=== PATIENT | female | born 1955 | race Two or more races ===

== ENCOUNTER 2024-07-09 15:45 | Inpatient (IN) | payer MEDICARE, MEDICAID ==
[~2024-07-09] VITALS: Ht 165.1 cm; Wt 94.5 kg
[2024-07-09] MEDS: ASPIRIN 81MG TABLET PO ONE (16:28)
[2024-07-09] MEDS: SODIUM CHLORIDE 0.9% 1,000 ML IV ONE (16:28)
[2024-07-09] MEDS: DILTIAZEM HCL 5MG/ML 5ML VIAL IV ONE (16:28)
[2024-07-09] MEDS: ONDANSETRON HCL 4MG/2ML INJ IV STA (16:28)
[2024-07-09 16:42] LABS: HEMATOCRIT. 39.4 % (36.0-48.0); HEMOGLOBIN. 12.3 g/dL (12.0-16.0); MEAN CORPUSCULAR HEMOGLOBIN 29.4 pg (28.0-32.0); MEAN CORPUSCULAR HGB CONC 31.3 g/dL (31.0-37.0); MEAN CORPUSCULAR VOLUME 94.2 fL (81.0-99.0); MEAN PLATELET VOLUME 8.8 fl (7.4-10.4); PLATELET 176 x1000/uL (130-400); RED BLOOD CELL COUNT 4.18 mill/uL (4.2-5.4); RED CELL DISTRIBUTION WIDTH 14.3 % (11.6-14.6)
[2024-07-09 16:44] LABS: DIFFERENTIAL COMMENT 1
[2024-07-09 16:51] LABS: CHLORIDE 103 mEq/L (98-107); POTASSIUM 3.9 mEq/L (3.5-5.1); SODIUM 135 mEq/L (136-145)
[2024-07-09 16:52] LABS: CARBON DIOXIDE 20 mEq/L (21-32)
[2024-07-09 16:53] LABS: CALCIUM 9.2 mg/dL (8.7-10.4)
[2024-07-09 16:57] LABS: GLUCOSE 186 mg/dL (70-105); UREA NITROGEN BLOOD 9 mg/dL (9-23)
[2024-07-09 17:00] LABS: TROPONIN I HIGH SENSITIVITY 65 ng/L (3.0-34)
[2024-07-09 17:54] LABS: PLATELET ESTIMATE NORMAL
[2024-07-09] MEDS: ACETAMINOPHEN 500MG TABLET PO ONE (21:52)
[2024-07-09] MEDS: SODIUM CHLORIDE 0.9% (SEPSIS BOLUS) IV ONE (21:52)
[2024-07-09] MEDS ORDERED: MEROPENEM 1,000 MG in SODIUM CHLORIDE 0.9% 100 ML IV SCH (22:00)
[2024-07-09] MEDS ORDERED: ONDANSETRON HCL 4MG/2ML INJ IV PRN (22:00)
[2024-07-09] MEDS ORDERED: ACETAMINOPHEN 325MG TABLET PO PRN (22:00)
[2024-07-09] MEDS ORDERED: MAGNESIUM/ALUMINUM HYDROXIDE/SIMETHICONE 30ML UDC PO PRN (22:00)
[2024-07-09] MEDS ORDERED: DOCUSATE SODIUM 100MG CAPSULE PO PRN (22:00)
[2024-07-09] MEDS ORDERED: ZOLPIDEM TARTRATE 5MG TABLET PO PRN (22:00)
[2024-07-09] MEDS ORDERED: KETOROLAC 15MG/ML VIAL IV PRN (22:00)
[2024-07-09] MEDS ORDERED: NITROGLYCERIN 0.4MG TABLET SL SL PRN (22:00)
[2024-07-09 22:48] LABS: CLARITY URINE CLEAR (CLEAR); COLOR URINE YELLOW (YELLOW); GLUCOSE URINE NEGATIVE (NEGATIVE); KETONES URINE NEGATIVE (NEGATIVE); LEUKOCYTE ESTERASE URINE NEGATIVE (NEGATIVE); NITRITE URINE NEGATIVE (NEGATIVE); OCCULT BLOOD URINE NEGATIVE (NEGATIVE); PROTEIN URINE TRACE (NEGATIVE); SPECIFIC GRAVITY URINE 1.021 (1.005-1.030)
[2024-07-09] MEDS: LEVOFLOXACIN 750MG PREMIX 150 ML IV NR (22:48)
[2024-07-09 22:50] LABS: BACTERIA URINE TRACE; RBC URINE 0-2 /hpf (0-2); SQUAMOUS EPITHELIAL CELL URINE 1+ /lpf (RARE/1+)
[2024-07-09] MEDS: ENOXAPARIN 80MG/0.8ML SYR SUBCUT NR (23:47)
[2024-07-09] MEDS: MEROPENEM 1GM/50ML DUPLEX 50 ML IV SCH (23:47)
[2024-07-10] VITALS (8 sets, daily range): BP systolic 100–179; BP diastolic 51–108; PULSE 59–115; RESP 18–24; TEMP 36.0288–37.66968; O2SAT 92–99
[2024-07-10] MEDS: DILTIAZEM HCL 60MG TABLET PO SCH
[2024-07-10] MEDS: VANCOMYCIN 1.5GM/250ML IV NR (01:21)
[2024-07-10] MEDS ORDERED: CARV3.1242 PO (02:31)
[2024-07-10] MEDS ORDERED: ASPI-1497 PO (02:31)
[2024-07-10] MEDS ORDERED: ALLO100T PO (02:31)
[2024-07-10] MEDS ORDERED: APIX5TAB PO (02:31)
[2024-07-10] MEDS ORDERED: [UNRECOGNIZED DRUG - CODE] PO (02:31)
[2024-07-10] MEDS ORDERED: BUME1TAB8 PO (02:31)
[2024-07-10 03:08] LABS: IRON 23 ug/dL (50-170)
[2024-07-10 03:10] LABS: CREATINE KINASE MB FRACTION 1.1 ng/mL (0.5-3.6)
[2024-07-10 03:11] LABS: TOTAL IRON BINDING CAPACITY 322 ug/dl (250-425)
[2024-07-10 03:12] LABS: FOLIC ACID (FOLATE) SERUM 14.76 ng/mL (>5.38)
[2024-07-10 03:13] LABS: THYROID STIMULATING HORMONE 1.71 uIU/mL (0.55-4.78); VITAMIN B12 SERUM 427 pg/mL (211-911)
[2024-07-10 03:14] LABS: T4 FREE 1.02 ng/dL (0.89-1.76)
[2024-07-10 03:16] LABS: ETHANOL BLOOD < 10 mg/dL (<10)
[2024-07-10 04:56] LABS: INR 1.1; PROTHROMBIN TIME 12.4 sec (9.6-11.0)
[2024-07-10 05:57] LABS: BASOPHILS % 0.3 % (0.0-2.0); EOSINOPHILS % 0.1 % (0.0-5.0); HEMATOCRIT. 34.6 % (36.0-48.0); HEMOGLOBIN. 11.4 g/dL (12.0-16.0); LYMPHOCYTES % 10.6 % (20.0-50.0); MEAN CORPUSCULAR HEMOGLOBIN 29.9 pg (28.0-32.0); MEAN CORPUSCULAR HGB CONC 33.1 g/dL (31.0-37.0); MEAN CORPUSCULAR VOLUME 90.5 fL (81.0-99.0); MONOCYTES % 7.5 % (2.0-8.0); NEUTROPHILS % 81.5 % (40.0-76.0); PLATELET 170 x1000/uL (130-400); RED BLOOD CELL COUNT 3.82 mill/uL (4.2-5.4); RED CELL DISTRIBUTION WIDTH 13.9 % (11.6-14.6); WHITE BLOOD COUNT 9.7 x1000/uL (4.5-11.0)
[2024-07-10] MEDS ORDERED: MEROPENEM 1GM/50ML DUPLEX 50 ML IV SCH (06:00)
[2024-07-10 06:10] LABS: CHLORIDE 107 mEq/L (98-107); POTASSIUM 3.5 mEq/L (3.5-5.1); SODIUM 140 mEq/L (136-145)
[2024-07-10 06:12] LABS: CALCIUM 8.3 mg/dL (8.7-10.4); CARBON DIOXIDE 24 mEq/L (21-32)
[2024-07-10 06:17] LABS: CREATININE 0.7 mg/dL (0.6-1.0); GLUCOSE 177 mg/dL (70-105)
[2024-07-10 06:18] LABS: CREATINE KINASE MB FRACTION 1.7 ng/mL (0.5-3.6); UREA NITROGEN BLOOD 9 mg/dL (9-23)
[2024-07-10 06:19] LABS: ALANINE AMINOTRANSFERASE 16 IU/L (10-49); ALBUMIN 3.8 g/dL (3.2-4.8); ASPARTATE AMINOTRANSFERASE 26 IU/L (<34)
[2024-07-10 06:20] LABS: BILIRUBIN TOTAL 0.7 mg/dL (0.1-1.0); PHOSPHORUS 2.6 mg/dL (2.5-4.9); PROTEIN TOTAL 6.6 g/dL (6.0-8.3)
[2024-07-10] MEDS: ASPIRIN 81MG EC TABLET PO SCH (09:27)
[2024-07-10] MEDS: FAMOTIDINE 20MG TABLET PO SCH (09:27)
[2024-07-10] MEDS: ASCORBIC ACID 500 MG TABLET PO SCH (09:28)
[2024-07-10] MEDS: CLONIDINE 0.1MG TABLET PO PRN (09:29)
[2024-07-10] MEDS: ENOXAPARIN 100MG/ML SYR SUBCUT SCH (09:30)
[2024-07-10] MEDS: ZINC SULFATE 220 MG ( 50 ) CAPSULE PO SCH (09:30)
[2024-07-10] MEDS: METOPROLOL TARTRATE 50MG TABLET PO SCH (09:36)
[2024-07-10] MEDS ORDERED: VANCOMYCIN 500MG/100ML IV SCH ×2 (11:00→13:00)
[2024-07-10] MEDS: DIGOXIN 500MCG/2ML AMP IV NR (11:02)
[2024-07-10] MEDS: ACETAMINOPHEN 325MG TABLET PO PRN (11:14)
[2024-07-10 11:57] LABS: *AMPHETAMINES SCREEN URINE NEGATIVE (NEGATIVE); *BARBITURATES SCREEN URINE NEGATIVE (NEGATIVE); *BENZODIAZEPINES SCREEN URINE NEGATIVE (NEGATIVE); *COCAINE SCREEN URINE NEGATIVE (NEGATIVE); CANNABINOID URINE SCREEN NEGATIVE (NEGATIVE); ECSTASY MDMA SCREEN URINE NEGATIVE (NEGATIVE); METHADONE URINE SCREEN NEGATIVE (NEGATIVE); OPIATES URINE SCREEN PRESUMPTIVE POSITIVE (NEGATIVE); PHENCYCLIDINE URINE SCREEN NEGATIVE (NEGATIVE)
[2024-07-10] MEDS: VANCOMYCIN 750MG PREMIX 150 ML IV SCH (14:17)
[2024-07-10] MEDS: IPRATROPIUM/ALBUTEROL 0.5-3(2.5)MG/3ML NEB NEB PRN (21:24)
[2024-07-10] MEDS: BUMETANIDE 1MG/4ML VIAL IV NR (21:26)
[2024-07-10] MEDS: MAGNESIUM 1 G PREMIX 100 ML IV NR (22:40)
[2024-07-11] VITALS (8 sets, daily range): BP systolic 113–123; BP diastolic 59–78; PULSE 84–123; RESP 19–22; TEMP 36.50292–37.39188; O2SAT 96–100
[2024-07-11] MEDS: BUMETANIDE 1MG TABLET PO SCH (08:59)
[2024-07-11] MEDS: VANCOMYCIN 750MG PREMIX 150 ML IV SCH (13:15)
[2024-07-11] MEDS: GUAIFENESIN 200MG/10ML SUGAR FREE UDC PO PRN (13:21)
[2024-07-11] MEDS: MEROPENEM 1GM/50ML DUPLEX 50 ML IV SCH (15:03)
[2024-07-11] MEDS ORDERED: DEXTROSE 50% WATER 50ML SYRINGE IV PRN (16:00)
[2024-07-11] MEDS: BLOOD SUGAR DIAGNOSTIC STRIP TEST SCH (17:55)
[2024-07-11] MEDS: INSULIN LISPRO 100 UNITS/ML SUBCUT SCH (17:56)
[2024-07-11] MEDS: METOPROLOL TARTRATE 5MG/5ML VIAL IV PRN (18:47)
[2024-07-11] MEDS: METOPROLOL TARTRATE 50MG TABLET PO SCH (21:34)
[2024-07-11] MEDS: INSULIN GLARGINE 100 UNITS/ML SUBCUT SCH (21:39)
[2024-07-12] VITALS: BP 132/87; PULSE 104; RESP 20; TEMP 36.50292; O2SAT 96
[2024-07-12 04:00] VITALS: BP 135/71; PULSE 114; RESP 20; TEMP 36.50292; O2SAT 99
[2024-07-12 08:00] VITALS: BP 128/88; PULSE 109; RESP 20; TEMP 36.28068; O2SAT 99
[2024-07-12] MEDS: METOPROLOL TARTRATE 100MG TABLET PO SCH (09:47)
[2024-07-12 12:00] VITALS: BP 119/62; PULSE 86; RESP 19; TEMP 36.33624; O2SAT 98
[2024-07-12 13:29] LABS: CARBON DIOXIDE 32 mEq/L (21-32); CHLORIDE 100 mEq/L (98-107); POTASSIUM 3.2 mEq/L (3.5-5.1); SODIUM 141 mEq/L (136-145)
[2024-07-12 13:30] LABS: CHLORIDE 99 mEq/L (98-107); POTASSIUM 3.3 mEq/L (3.5-5.1); SODIUM 140 mEq/L (136-145)
[2024-07-12 13:31] LABS: CARBON DIOXIDE 32 mEq/L (21-32)
[2024-07-12 13:36] LABS: CREATININE 0.6 mg/dL (0.6-1.0); GLUCOSE 154 mg/dL (70-105); GLUCOSE 156 mg/dL (70-105); UREA NITROGEN BLOOD 7 mg/dL (9-23)
[2024-07-12 16:00] VITALS: BP 115/64; PULSE 97; RESP 20; TEMP 36.83628; O2SAT 97
[2024-07-12] MEDS: VANCOMYCIN 1GM/200ML PMX (BAXTER) IV SCH (17:28)
[2024-07-12 20:00] VITALS: BP 125/78; PULSE 112; RESP 19; TEMP 36.78072; O2SAT 93
[2024-07-12 22:00] LABS: BASOPHILS % 0.2 % (0.0-2.0); EOSINOPHILS % 1.6 % (0.0-5.0); HEMATOCRIT. 33.5 % (36.0-48.0); HEMOGLOBIN. 11.3 g/dL (12.0-16.0); LYMPHOCYTES % 16.6 % (20.0-50.0); MEAN CORPUSCULAR HEMOGLOBIN 29.9 pg (28.0-32.0); MEAN CORPUSCULAR HGB CONC 33.7 g/dL (31.0-37.0); MEAN CORPUSCULAR VOLUME 88.7 fL (81.0-99.0); MEAN PLATELET VOLUME 8.4 fl (7.4-10.4); MONOCYTES % 7.8 % (2.0-8.0); NEUTROPHILS % 73.8 % (40.0-76.0); PLATELET 195 x1000/uL (130-400); RED BLOOD CELL COUNT 3.77 mill/uL (4.2-5.4); RED CELL DISTRIBUTION WIDTH 13.5 % (11.6-14.6); WHITE BLOOD COUNT 5.6 x1000/uL (4.5-11.0)
[2024-07-13] VITALS (8 sets, daily range): BP systolic 96–141; BP diastolic 67–92; PULSE 61–113; RESP 18–20; TEMP 36.05844–37.11408; O2SAT 89–100
[2024-07-13] MEDS ORDERED: AZIT500T8 MT (16:35)
== END 2024-07-13 20:05 | disposition home or self-care (01) | DRG 871 ==
LOC: ER 15:45 → 7WST 21:49 → EDBEDREQTM 21:56 → EDBEDREQ 21:56
PROVIDERS: ADMIT Internal Medicine; ATTEND Internal Medicine
DX: A41.9 Sepsis, unspecified organism (principal); G92.8 Other toxic encephalopathy; J96.01 Acute respiratory failure with hypoxia; I50.23 Acute on chronic systolic (congestive) heart failure; I21.A1 Myocardial infarction type 2; R65.20 Severe sepsis without septic shock; Z20.822 Contact with and (suspected) exposure to COVID-19; E66.9 Obesity, unspecified; J10.1 Influenza due to other identified influenza virus with other respiratory manifestations; E11.9 Type 2 diabetes mellitus without complications; I48.91 Unspecified atrial fibrillation; I50.9 Heart failure, unspecified; Z68.34 Body mass index [BMI] 34.0-34.9, adult; Z95.810 Presence of automatic (implantable) cardiac defibrillator; Z79.899 Other long term (current) drug therapy
CPT/HCPCS: 36415; 71045; 80048; 80053; 80202; 80305; 80320; 81003; 82550; 82553; 82607; 82746; 82962; 83036; 83540; 83550; 83605; 83735; 83880; 84100; 84145; 84439; 84443; 84484; 85025; 87426; 87804; 93005; 93306; 93970; 94070; 94640; 94664; 97166; 98960; 99285; J1160; J1650; J1815; J1956; J2185; J2405; J3370; J3475; J3490; J7030; G0480